=== PATIENT | female | born 1985 | race Caucasian/White ===

== ENCOUNTER 2017-08-20 07:41 | Inpatient (IN) | payer OTHER ==
[2017-08-20] VITALS (23 sets, daily range): BP systolic 101–157; BP diastolic 66–98
[~2017-08-20] VITALS: Ht 157.5 cm; Wt 69.5 kg
[~2017-08-20 07:41] MED LIST: DOXYCYCLINE HY100 MG PO; NAPROXEN375 MG PO; PERCOCET 5/31 TABLET PO; PROMETHAZINE HC25 M1 PO; VALTREX1000 MG PO
[2017-08-20] MEDS ORDERED: TYLENOL EXTRA500 MG PO (08:48)
[2017-08-20] MEDS ORDERED: ZOFRAN8 MG PO (08:49)
[2017-08-20 10:15] LABS: BASOPHIL (%) 0.8 % (0-1); BASOPHIL COUNT 0.1 K/uL (0-0.1); EOSINOPHIL (%) 0.7 % (0-5); EOSINOPHIL COUNT 0.1 K/uL (0-0.3); HEMATOCRIT 34.6 % (36.0-46.0); HEMOGLOBIN 11.6 G/DL (11.9-15.5); IMMATURE GRANULOCYTE (%) 0.6 % (0.0-0.7); LYMPHOCYTE (%) 23.5 % (15-42); LYMPHOCYTE COUNT 2.1 K/uL (1.0-2.8); MCH 32.3 PG (29.0-34.0); MCHC 33.5 G/DL (30.0-36.0); MCV 96.4 FL (83-99); MONOCYTE (%) 8.9 % (3-12); MONOCYTE COUNT 0.8 K/uL (0-0.8); NEUTROPHIL (%) 65.5 % (45-76); NEUTROPHIL COUNT 5.9 K/uL (1.8-6.4); PLATELET COUNT 202 K/uL (156-360); RBC DIS.WIDTH-CV 13.3 % (11.8-14.6); RBC DIS.WIDTH-SD 47.1 % (39-53); RED BLOOD COUNT 3.59 M/uL (3.80-5.20); WHITE BLOOD COUNT 8.9 K/uL (4.1-10.2)
[2017-08-20 10:29] LABS: AMPHETAMINE NEGATIVE (500 ng/mL); BARBITURATES NEGATIVE (200 ng/mL); BENZODIAZEPINES NEGATIVE (150 ng/mL); BUPRENORPHINE NEGATIVE (10 ng/mL); COCAINE NEGATIVE (150 ng/mL); METHADONE NEGATIVE (200 ng/mL); METHAMPHETAMINE NEGATIVE (500 ng/mL); OPIATES (MORPHINE) NEGATIVE (100 ng/mL); OXYCODONE NEGATIVE (100 ng/mL); PHENCYCLIDINE NEGATIVE (25 ng/mL); PROPOXYPHENE NEGATIVE (300 ng/mL); THC CANNABINOIDS PRESUMPTIVE POSITIVE (50 ng/mL); TRICYCLIC ANTIDEPRESSANTS NEGATIVE (300 ng/mL)
[2017-08-21 06:42] LABS: BASOPHIL (%) 0.5 % (0-1); BASOPHIL COUNT 0.1 K/uL (0-0.1); EOSINOPHIL (%) 0.7 % (0-5); EOSINOPHIL COUNT 0.1 K/uL (0-0.3); HEMOGLOBIN 10.8 G/DL (11.9-15.5); IMMATURE GRANULOCYTE (%) 0.5 % (0.0-0.7); LYMPHOCYTE (%) 26.8 % (15-42); LYMPHOCYTE COUNT 3.1 K/uL (1.0-2.8); MCH 32.2 PG (29.0-34.0); MCHC 33.8 G/DL (30.0-36.0); MCV 95.5 FL (83-99); MONOCYTE (%) 7.9 % (3-12); MONOCYTE COUNT 0.9 K/uL (0-0.8); NEUTROPHIL (%) 63.6 % (45-76); NEUTROPHIL COUNT 7.3 K/uL (1.8-6.4); PLATELET COUNT 205 K/uL (156-360); RBC DIS.WIDTH-CV 13.2 % (11.8-14.6); RBC DIS.WIDTH-SD 46.4 % (39-53); RED BLOOD COUNT 3.35 M/uL (3.80-5.20); WHITE BLOOD COUNT 11.4 K/uL (4.1-10.2)
[2017-08-21] MEDS ORDERED: IBUPROFEN800 MG PO (11:25)
[2017-08-21] MEDS ORDERED: SPRINTEC1 EACH PO (11:26)
== END 2017-08-21 19:25 | disposition home or self-care (01) | DRG 775 ==
LOC: LDRP-OP → 2WEST 07:42 → LDRP-OP 16:29 → 2WEST 08-21 19:25
PROVIDERS: Advanced Practice Midwife
DX: O48.0 Post-term pregnancy (principal); O99.354 Diseases of the nervous system complicating childbirth; Z37.0 Single live birth; Z3A.40 40 weeks gestation of pregnancy; E66.3 Overweight; O12.04 Gestational edema, complicating childbirth; G43.909 Migraine, unspecified, not intractable, without status migrainosus; O77.0 Labor and delivery complicated by meconium in amniotic fluid; O43.193 Other malformation of placenta, third trimester; Z87.891 Personal history of nicotine dependence; Z68.28 Body mass index [BMI] 28.0-28.9, adult; Z82.49 Family history of ischemic heart disease and other diseases of the circulatory system
CPT/HCPCS: 84999; 85025; C1755; J2405; J7120

== ENCOUNTER 2017-10-22 06:23 | Day surgery (SDC) | payer OTHER ==
[~2017-10-22] VITALS: Ht 157.5 cm; Wt 69.8 kg
[~2017-10-22 06:23] MED LIST changes: +AMOX TR-K CLV1 EAC4 PO; +IBUPROFEN800 MG PO; +MOTRIN800 MG PO; +SPRINTEC1 EACH PO; +TYLENOL EXTRA500 MG PO; +ZOFRAN8 MG PO
[2017-10-22 07:13] VITALS: BP 121/74
[2017-10-22 07:17] LABS: HEMATOCRIT 40.6 % (36.0-46.0); HEMOGLOBIN 13.6 G/DL (11.9-15.5); MCH 31.3 PG (29.0-34.0); MCHC 33.5 G/DL (30.0-36.0); MCV 93.5 FL (83-99); PLATELET COUNT 241 K/uL (156-360); RBC DIS.WIDTH-CV 12.3 % (11.8-14.6); RBC DIS.WIDTH-SD 42.4 % (39-53); RED BLOOD COUNT 4.34 M/uL (3.80-5.20); WHITE BLOOD COUNT 7.2 K/uL (4.1-10.2)
[2017-10-22] MEDS ORDERED: ENDOCET 5-3251 EACH PO (09:52)
[2017-10-22] MEDS ORDERED: IBUPROFEN800 MG PO (09:52)
[2017-10-22 10:50] VITALS: BP 136/91
[2017-10-22 11:41] VITALS: BP 139/82
== END 2017-10-22 11:48 | disposition home or self-care (01) ==
LOC: SDC 06:23
PROVIDERS: Obstetrics & Gynecology
PROC: 0U574ZZ Destruction of Bilateral Fallopian Tubes, Percutaneous Endoscopic Approach (ICD-10-PCS; principal; 2017-10-22)
DX: Z30.2 Encounter for sterilization (principal); K21.9 Gastro-esophageal reflux disease without esophagitis; Z87.891 Personal history of nicotine dependence
CPT/HCPCS: 81025; 85027; 86850; 86900; 86901; J0330; J1170; J1885; J2405; J3010